=== PATIENT | male | born 1980 | race Two or more races ===

== ENCOUNTER 2023-11-06 18:48 | Emergency (ER) | payer MEDICAID ==
[~2023-11-06] VITALS: Ht 167.6 cm; Wt 65.8 kg
[2023-11-06 20:05] VITALS: TEMP 98.4
[2023-11-06] MEDS ORDERED: IBUPROFEN 600 MG TABLET ONE (21:33)
[2023-11-06] MEDS: IBUPROFEN 600 MG TABLET PO ONE (21:33)
[2023-11-06 22:47] VITALS: BP 140/82; O2SAT 98
== END 2023-11-06 22:48 | disposition home or self-care (01) ==
LOC: ER 18:58
DX: S70.11XA Contusion of right thigh, initial encounter (principal); W18.30XA Fall on same level, unspecified, initial encounter; Y93.66 Activity, soccer; Y92.89 Other specified places as the place of occurrence of the external cause; Y99.8 Other external cause status
CPT/HCPCS: 73552

== ENCOUNTER 2024-10-07 14:41 | Emergency (ER) | payer MEDICAID ==
[~2024-10-07] VITALS: Ht 149.9 cm; Wt 60.8 kg
[2024-10-07] MEDS ORDERED: Thiamine 100 MG/ML VIAL ONE (15:30)
[2024-10-07] MEDS ORDERED: ONDANSETRON HCL/PF 4 MG/2 ML VIAL ONE (15:30)
[2024-10-07] MEDS ORDERED: LORAZEPAM INJ 2 MG/ML VIAL ONE (15:50)
[2024-10-07] MEDS: LORAZEPAM INJ 2 MG/ML VIAL IV ONE (15:51)
[2024-10-07] MEDS: IV NS 0.9% 1,000 ML BAG IV ONE (15:52)
[2024-10-07] MEDS: ONDANSETRON HCL/PF 4 MG/2 ML VIAL IVP ONE (15:52)
[2024-10-07 15:55] LABS: CALCIUM, SERUM 8.4 mg/dL (8.5-10.1); CREATININE 1.1 mg/dL (0.6-1.3); POTASSIUM 3.2 mmol/L (3.5-5.1)
[2024-10-07 16:02] LABS: ALBUMIN 3.1 g/dL (3.4-5.0); BILIRUBIN,TOTAL 1.3 mg/dL (0.2-1.0); TOTAL PROTEIN, SERUM 7.7 g/dL (6.4-8.2)
[2024-10-07 16:08] LABS: THYROID STIMULATING HORMONE 4.44 uIU/mL (0.358-3.74)
[2024-10-07] MEDS: Thiamine 100 MG in IV D5W 50 ML IV SCH (16:18)
[2024-10-07 17:07] LABS: APPEARANCE,URINE CLEAR (CLEAR); BILIRUBIN,URINE NEGATIVE (NEGATIVE); BLOOD, URINE NEGATIVE Ery/uL (NEGATIVE); COLOR,URINE YELLOW (YELLOW); KETONES,URINE NEGATIVE (NEGATIVE); LEUKOCYTE ESTERASE ,URINE NEGATIVE (NEGATIVE); NITRITE, URINE NEGATIVE (NEGATIVE); PH,URINE 6.5 (5.0-8.0); PROTEIN,URINE NEGATIVE (NEGATIVE); UGLUCOSE NEGATIVE (NEGATIVE); UROBILINOGEN,URINE 0.2 EU/dL (0.2)
[2024-10-07 17:11] LABS: BASOPHILS # (AUTO) 0.1 K/uL (0.0-0.2); BASOPHILS % (AUTO) 1.4 % (0.0-2.0); HEMATOCRIT 31 % (39-51); HEMOGLOBIN 10.5 g/dL (13.5-17.5); LYMPHOCYTES # (AUTO) 2.1 K/uL (0.8-4.8); LYMPHOCYTES % (AUTO) 33.8 % (20.0-44.0); MEAN CORPUSCULAR HEMOGLOBIN 33 PG (26.0-33.0); MEAN CORPUSCULAR HGB CONC 35 g/dl (31.0-36.0); MEAN CORPUSCULAR VOLUME 95 fL (80-96); MONOCYTES # (AUTO) 0.3 K/uL (0.1-1.30); MONOCYTES % (AUTO) 4.4 % (2.0-12.0); NEUTROPHILS # (AUTO) 3.7 K/uL (1.8-8.9); NEUTROPHILS % (AUTO) 60.4 % (43.0-81.0); PLATELET COUNT (AUTO) 255 K/uL (150-450); RED BLOOD CELL COUNT(AUTO) 3.21 MIL/uL (4.5-6.0); RED CELL DISTRIBUTION WIDTH 16.3 % (11.5-15.0); WHITE BLOOD COUNT (AUTO) 6.2 K/uL (4.3-11.0)
[2024-10-07 17:21] LABS: AMPHETAMINE, URINE NEGATIVE (NEGATIVE); BARBITURATE, URINE NEGATIVE (NEGATIVE); BENZODIAZEPINE, URINE NEGATIVE (NEGATIVE); CANNABINOID, URINE NEGATIVE (NEGATIVE); COCCAINE, URINE NEGATIVE (NEGATIVE); OPIATE, URINE NEGATIVE (NEGATIVE); PHENCYCLIDINE SCREEN,URINE NEGATIVE (NEGATIVE)
[2024-10-07] MEDS ORDERED: POTASSIUM CHLORIDE 20 MEQ TAB.PRT.SR PO ONE (17:51)
[2024-10-07] MEDS: POTASSIUM CHLORIDE 20 MEQ TAB.PRT.SR PO ONE (17:52)
[2024-10-07 17:57] VITALS: BP 128/80; TEMP 98.5; O2SAT 98
== END 2024-10-07 17:58 | disposition home or self-care (01) ==
LOC: ER 14:47
DX: F10.229 Alcohol dependence with intoxication, unspecified (principal); K70.10 Alcoholic hepatitis without ascites; E87.6 Hypokalemia; E03.9 Hypothyroidism, unspecified; R11.10 Vomiting, unspecified; Y90.8 Blood alcohol level of 240 mg/100 ml or more
CPT/HCPCS: 99284; 96365; 96375; 93005; 82140; 85025; 80048; 80076; 81003; 36415; 84443; 80320; 80307; J2060; J2405; J7060 ×2; J7030; J3411; G0480

== ENCOUNTER 2025-01-05 23:54 | Inpatient (IN) | payer MEDICAID ==
[~2025-01-05] VITALS: Ht 167.6 cm; Wt 65.3 kg
[2025-01-06] VITALS (13 sets, daily range): BP systolic 104–118; BP diastolic 65–84; TEMP 98.2–99; O2SAT 96–100
[2025-01-06] MEDS ORDERED: ONDANSETRON HCL/PF 4 MG/2 ML VIAL ONE (02:19)
[2025-01-06] MEDS ORDERED: LORAZEPAM INJ 2 MG/ML VIAL ONE (02:19)
[2025-01-06] MEDS ORDERED: Thiamine 100 MG/ML VIAL ONE (02:19)
[2025-01-06] MEDS: IV NS 0.9% 1,000 ML BAG IV ONE (02:21)
[2025-01-06] MEDS: Thiamine 100 MG in IV D5W 50 ML IV SCH (02:21)
[2025-01-06] MEDS: LORAZEPAM INJ 2 MG/ML VIAL IV ONE (02:21)
[2025-01-06] MEDS: ONDANSETRON HCL/PF 4 MG/2 ML VIAL IVP ONE (02:21)
[2025-01-06 02:29] LABS: ALBUMIN 2.9 g/dL (3.4-5.0); BILIRUBIN,DIRECT 0.2 mg/dL (0.0-0.2); BILIRUBIN,TOTAL 0.5 mg/dL (0.2-1.0); CALCIUM, SERUM 8.1 mg/dL (8.5-10.1); CREATININE 1.1 mg/dL (0.6-1.3); POTASSIUM 3.3 mmol/L (3.5-5.1); TOTAL PROTEIN, SERUM 6.4 g/dL (6.4-8.2)
[2025-01-06 02:47] LABS: BASOPHILS # (AUTO) 0.1 K/uL (0.0-0.2); BASOPHILS % (AUTO) 1.1 % (0.0-2.0); LYMPHOCYTES # (AUTO) 0.9 K/uL (0.8-4.8); LYMPHOCYTES % (AUTO) 16.5 % (20.0-44.0); MEAN CORPUSCULAR HEMOGLOBIN 22 PG (26.0-33.0); MEAN CORPUSCULAR HGB CONC 32 g/dl (31.0-36.0); MEAN CORPUSCULAR VOLUME 68 fL (80-96); MONOCYTES # (AUTO) 0.5 K/uL (0.1-1.30); NEUTROPHILS # (AUTO) 4.1 K/uL (1.8-8.9); NEUTROPHILS % (AUTO) 73.4 % (43.0-81.0); PLATELET COUNT (AUTO) 154 K/uL (150-450); RED CELL DISTRIBUTION WIDTH 26.9 % (11.5-15.0); WHITE BLOOD COUNT (AUTO) 5.6 K/uL (4.3-11.0)
[2025-01-06 03:02] LABS: APPEARANCE,URINE CLEAR (CLEAR); BILIRUBIN,URINE NEGATIVE (NEGATIVE); BLOOD, URINE NEGATIVE Ery/uL (NEGATIVE); COLOR,URINE YELLOW (YELLOW); KETONES,URINE NEGATIVE (NEGATIVE); LEUKOCYTE ESTERASE ,URINE NEGATIVE (NEGATIVE); NITRITE, URINE NEGATIVE (NEGATIVE); PROTEIN,URINE NEGATIVE (NEGATIVE); UGLUCOSE NEGATIVE (NEGATIVE); UROBILINOGEN,URINE 0.2 EU/dL (0.2)
[2025-01-06 03:05] LABS: HEMATOCRIT 11 % (39-51); RED BLOOD CELL COUNT(AUTO) 1.59 MIL/uL (4.5-6.0)
[2025-01-06 03:08] LABS: HEMOGLOBIN 3.4 g/dL (13.5-17.5)
[2025-01-06] MEDS ORDERED: CEFTRIAXONE 1 G in IV D5W 50 ML IV SCH (03:30)
[2025-01-06] MEDS ORDERED: ONDANSETRON HCL/PF 4 MG/2 ML VIAL IVP PRN (03:30)
[2025-01-06] MEDS: OCTREOTIDE 50 MCG in IV NS 0.9% 50 ML IV ONE (03:30)
[2025-01-06] MEDS ORDERED: LORAZEPAM INJ 2 MG/ML VIAL IV PRN (03:30)
[2025-01-06] MEDS ORDERED: ACETAMINOPHEN 325 MG TABLET PO PRN (03:30)
[2025-01-06] MEDS ORDERED: OCTREOTIDE 1,250 MCG in IV NS 0.9% 247.5 ML IV SCH (03:30)
[2025-01-06 04:40] LABS: ANISOCYTOSIS 1+; BASOPHILS % (MANUAL) 0 % (0.0-2.0); EOSINOPHILS % (MANUAL) 0 % (0-4); HYPOCHROMASIA 1+; LYMPHOCYTES % (MANUAL) 15 % (16-48); MONOCYTES % (MANUAL) 9 % (0-11.0); NEUTROPHILS % (MANUAL) 76 (42-76); OVALOCYTES 1+; PLATELET ESTIMATE ADEQUATE
[2025-01-06] MEDS: IV NS 0.9% 1,000 ML IV SCH (06:29)
[2025-01-06] MEDS: PANTOPRAZOLE 40 MG VIAL IV SCH (06:31)
[2025-01-06] MEDS: CHLORDIAZEPOXIDE HCL 25 MG CAPSULE PO SCH (09:30)
[2025-01-06 12:01] LABS: INR 1.13 (0.91-1.10); PARTIAL THROMBOPLASTIN TIME 23.4 SEC (24.3-34.3); PROTHROMBIN TIME 11.9 SECS (9.2-11.1)
[2025-01-06] MEDS: OCTREOTIDE 1,250 MCG in IV NS 0.9% 247.5 ML IV SCH (12:30)
[2025-01-06] MEDS: CEFTRIAXONE 1 G in IV D5W 50 ML IV SCH (12:32)
[2025-01-06] MEDS: POTASSIUM CL. PREMIX PERIPHER. 50 ML IV SCH (12:36)
[2025-01-06] MEDS: Calcium Gluconate 1GM/10ML 9.3 MEQ in IV NS 0.9% 100 ML IV ONE (13:34)
[2025-01-06 14:31] LABS: BASOPHILS # (AUTO) 0.1 K/uL (0.0-0.2); BASOPHILS % (AUTO) 1.4 % (0.0-2.0); EOSINOPHILS % (AUTO) 0.2 % (0.0-6.0); LYMPHOCYTES # (AUTO) 1.4 K/uL (0.8-4.8); LYMPHOCYTES % (AUTO) 35.5 % (20.0-44.0); MEAN CORPUSCULAR HEMOGLOBIN 25 PG (26.0-33.0); MEAN CORPUSCULAR HGB CONC 34 g/dl (31.0-36.0); MEAN CORPUSCULAR VOLUME 75 fL (80-96); MONOCYTES # (AUTO) 0.4 K/uL (0.1-1.30); NEUTROPHILS # (AUTO) 2.1 K/uL (1.8-8.9); NEUTROPHILS % (AUTO) 51.9 % (43.0-81.0); PLATELET COUNT (AUTO) 120 K/uL (150-450); RED BLOOD CELL COUNT(AUTO) 2.55 MIL/uL (4.5-6.0); RED CELL DISTRIBUTION WIDTH 25.7 % (11.5-15.0); WHITE BLOOD COUNT (AUTO) 4.1 K/uL (4.3-11.0)
[2025-01-06 14:32] LABS: HEMOGLOBIN 6.4 g/dL (13.5-17.5)
[2025-01-06 14:33] LABS: HEMATOCRIT 19 % (39-51)
[2025-01-06 14:56] LABS: ANISOCYTOSIS 1+; HYPOCHROMASIA 1+; LYMPHOCYTES % (MANUAL) 28 % (16-48); MONOCYTES % (MANUAL) 5 % (0-11.0); NEUTROPHILS % (MANUAL) 67 (42-76); PLATELET ESTIMATE DECREASED
[2025-01-07] VITALS (9 sets, daily range): BP systolic 104–121; BP diastolic 64–82; TEMP 98.1–98.8; O2SAT 98–99
[2025-01-07] MEDS ORDERED: Thiamine 100 MG in IV D5W 50 ML IV SCH (02:00)
[2025-01-07 06:15] LABS: CALCIUM, SERUM 8.1 mg/dL (8.5-10.1); CREATININE 0.9 mg/dL (0.6-1.3); MAGNESIUM 1.9 mg/dL (1.8-2.4); PHOSPHORUS 3.1 mg/dL (2.5-4.9); POTASSIUM 3.6 mmol/L (3.5-5.1)
[2025-01-07 06:16] LABS: BASOPHILS # (AUTO) 0.1 K/uL (0.0-0.2); BASOPHILS % (AUTO) 1.2 % (0.0-2.0); EOSINOPHILS # (AUTO) 0.1 K/uL (0.0-0.7); EOSINOPHILS % (AUTO) 1.4 % (0.0-6.0); HEMATOCRIT 26 % (39-51); HEMOGLOBIN 8.5 g/dL (13.5-17.5); LYMPHOCYTES # (AUTO) 1.5 K/uL (0.8-4.8); LYMPHOCYTES % (AUTO) 30.7 % (20.0-44.0); MEAN CORPUSCULAR HEMOGLOBIN 26 PG (26.0-33.0); MEAN CORPUSCULAR HGB CONC 33 g/dl (31.0-36.0); MEAN CORPUSCULAR VOLUME 80 fL (80-96); MONOCYTES # (AUTO) 0.3 K/uL (0.1-1.30); MONOCYTES % (AUTO) 5.3 % (2.0-12.0); NEUTROPHILS % (AUTO) 61.4 % (43.0-81.0); PLATELET COUNT (AUTO) 139 K/uL (150-450); RED BLOOD CELL COUNT(AUTO) 3.25 MIL/uL (4.5-6.0); RED CELL DISTRIBUTION WIDTH 24.8 % (11.5-15.0)
[2025-01-07] MEDS: Thiamine 100 MG in IV D5W 50 ML IV SCH (08:32)
[2025-01-07] MEDS: CARVEDILOL 3.125 MG TABLET PO SCH (09:50)
[2025-01-07 18:18] LABS: HEMOGLOBIN 7.7 g/dL (13.5-17.5)
[2025-01-08] VITALS: BP 114/78; TEMP 98.4; O2SAT 100
[2025-01-08 02:43] LABS: HEMOGLOBIN 7.3 g/dL (13.5-17.5)
[2025-01-08 04:00] VITALS: BP 110/77; TEMP 98.4; O2SAT 100
[2025-01-08 08:00] VITALS: BP_SYST 105; BP_SYST 124; BP_DIAS 80; BP_DIAS 81; TEMP 98.4; O2SAT 100
[2025-01-08] MEDS: IV NS 0.9% 1,000 ML IV PRN (08:00)
[2025-01-08] MEDS: THIAMINE HCL 100 MG TABLET PO SCH (08:58)
[2025-01-08 10:18] LABS: HEMOGLOBIN 7.8 g/dL (13.5-17.5)
[2025-01-08] MEDS ORDERED: THIA100T74 PO (11:47)
[2025-01-08] MEDS ORDERED: CARV3.122 PO (11:47)
[2025-01-08] MEDS ORDERED: PANT40TA2 PO (11:47)
[2025-01-08 12:00] VITALS: BP 121/81; TEMP 98.4; O2SAT 100
== END 2025-01-08 13:47 | disposition home or self-care (01) | DRG 242 ==
LOC: ER 01-06 00:03 → TELE-TD 01-06 05:15 → TELE1 01-07 11:12 → MEDSG1 01-08 10:38
PROVIDERS: ADMIT Internal Medicine; ATTEND Nurse Practitioner Acute Care
PROC: 30233N1 Transfusion of Nonautologous Red Blood Cells into Peripheral Vein, Percutaneous Approach (ICD-10-PCS; 2025-01-06)
PROC: 0DJ08ZZ Inspection of Upper Intestinal Tract, Via Natural or Artificial Opening Endoscopic (ICD-10-PCS; principal; 2025-01-06 15:00)
DX: K22.11 Ulcer of esophagus with bleeding (principal); I85.01 Esophageal varices with bleeding; D62 Acute posthemorrhagic anemia; E83.51 Hypocalcemia; K29.61 Other gastritis with bleeding; E87.6 Hypokalemia; R53.1 Weakness; R94.5 Abnormal results of liver function studies; R74.01 Elevation of levels of liver transaminase levels; F10.139 Alcohol abuse with withdrawal, unspecified; Y90.0 Blood alcohol level of less than 20 mg/100 ml
CPT/HCPCS: 36415; 70450-TC; 71045-TC; 76700-TC; 80048-TC; 80076-TC; 83690-TC; 83735-TC; 84100-TC; 84484-TC; 85025-TC; 85027-TC; 85610-TC; 85730-TC; 86850-TC; 97110-TC; 97116-TC; 97530-TC; A4223; G0378; G0480; J0612; J0696; J2060; J2354; J2405; J2470; J2704; J3411; J3480; J7030; J7040; J7050; J7060; P9016

== ENCOUNTER 2025-02-08 18:21 | Emergency (ER) | payer MEDICAID ==
[~2025-02-08] VITALS: Ht 165.1 cm; Wt 68.0 kg
[~2025-02-08 18:21] MED LIST: CARV3.122 PO; PANT40TA2 PO; THIA100T74 PO
[2025-02-08] MEDS ORDERED: LORAZEPAM 1 MG TABLET ONE (20:52)
[2025-02-08] MEDS: LORAZEPAM 1 MG TABLET PO ONE (20:54)
[2025-02-08 21:15] VITALS: BP 115/74; TEMP 98; O2SAT 100
== END 2025-02-08 21:15 | disposition home or self-care (01) ==
LOC: ER 18:25
DX: S62.396A Other fracture of fifth metacarpal bone, right hand, initial encounter for closed fracture (principal); F10.129 Alcohol abuse with intoxication, unspecified; F32.A Depression, unspecified; I10 Essential (primary) hypertension; Z79.899 Other long term (current) drug therapy; W22.01XA Walked into wall, initial encounter; Y93.89 Activity, other specified; Y92.89 Other specified places as the place of occurrence of the external cause; Y99.8 Other external cause status; Y90.9 Presence of alcohol in blood, level not specified
CPT/HCPCS: 73130-TC